=== PATIENT | male | born 1955 | race Caucasian/White ===

== ENCOUNTER 2020-08-10 09:31 | Emergency (ER) | payer MEDICARE, OTHER, SELFPAY ==
[2020-08-10 09:42] VITALS: BP 140/72; PULSE 71; RESP 20; TEMP 36.1; O2SAT 100
[2020-08-10] MEDS: TETANUS,DIPHTHERIA,AC PERTUSSIS ADULT (0.5 ML) BOOSTRIX IM (10:23)
--- NOTE | 2020-08-10 10:29 | ED.WOUNDLAC ---
HPI - Wound/Laceration General Chief Complaint: Wound/Laceration Stated Complaint: left thumb lac Time Seen by Provider: 08/10/20 10:10 Source: patient and RN notes reviewed Mode of arrival: ambulatory Limitations: no limitations History of Present Illness HPI narrative: Patient presents today with a laceration to his left thumb that was sustained at 915 this morning on a stainless steel grill at his home. He is not up-to-date on his tetanus vaccine. Currently rates his pain /10. Denies numbness or tingling in the affected finger. He has tried no [id number] treatment prior to arrival. Related Data Home Medications Medication Instructions Recorded Confirmed atorvastatin 20 mg PO DAILY 08/10/20 08/10/20 celecoxib 200 mg PO BID 08/10/20 08/10/20 citalopram 30 mg PO DAILY 08/10/20 08/10/20 Allergies Allergy/AdvReac Type Severity Reaction Status Date / Time No Known Allergies Allergy Verified 08/10/20 09:49 Review of Systems Review of Systems: Narrative: CONSTITUTIONAL: Denies body aches, fever, chills, or sweats. EYES: Denies visual changes, redness, or discharge. ENT: Denies rhinorrhea, congestion, sore throat, or otalgia. CARDIOVASCULAR: Denies chest pain, palpitations, or edema. RESPIRATORY: Denies cough or dyspnea. GASTROINTESTINAL: Denies abdominal pain, nausea, vomiting, or diarrhea. GENITOURINARY: Denies dysuria or hematuria. SKIN: Denies rash, itching,. +Laceration to left thumb MUSCULOSKELETAL: Denies back pain, joint pain, or myalgia. NEUROLOGIC: Denies headache, numbness, tingling, or weakness. PSYCH: Denies depression or anxiety. [facility] Past Medical History Medical History (Updated 08/10/20 @ 12:47 by Vanesa Liang, [facility], ) Hyperlipidemia Comments At time of signature, I have reviewed and agree with nursing past medical, surgical, social and family history unless otherwise noted. Please see nursing chart for further information. There is no relevant family history pertinent to the presenting complaint Exam Narrative: Exam Narrative: GENERAL: Well-appearing, well-nourished, and in no acute distress. HEAD: Normocephalic, atraumatic. EYES: EOMI. No redness or drainage. Conjunctivae normal. ENT: Mucous membranes pink and moist. NECK: Normal AROM. CHEST: No respiratory distress. EXTREMITIES: 2 cm partial-thickness linear laceration to the dorsum of the left first finger at the inner phalangeal joint. Full AROM against resistance. Distal sensation intact. Capillary refill normal. SKIN: Warm, dry, no rash. Capillary refill normal. Normal skin turgor. NEURO: No focal deficits. Alert and oriented x3. Gait steady. PSYCH: Normal affect. No signs of depression or anxiety. Course Vital Signs Vital signs: Vital Signs Temperature 97.0 F L 08/10/20 09:42 Pulse Rate 71 08/10/20 09:42 Respiratory Rate 20 08/10/20 09:42 Blood Pressure 140/72 08/10/20 09:42 Pulse Oximetry 100 08/10/20 09:42 Temperature 97.0 F L 08/10/20 09:42 Pulse Rate 71 08/10/20 09:42 Respiratory Rate 20 08/10/20 09:42 Blood Pressure 140/72 08/10/20 09:42 Pulse Oximetry 100 08/10/20 09:42 Reviewed. Pt has been instructed to follow up with his PCP regarding his elevated blood pressure today. Procedures Laceration Laceration 1: Date: 08/10/20 Time: 10:20 Site: upper extremity Side (If applicable): left Size (cm): 2 Description: linear Depth: simple, single layer Local Anesthetic: lidocaine 1% Amount of anesthesia used (mL): 1 Pre-repair: wound explored and irrigated ====== Skin Level ====== Skin layer closed with: nylon Size (cm): 5-0 Number of sutures: 3 Technique: simple, interrupted ====== Subcutaneous Layer ====== ====== Muscle Layer ====== ====== Tendon Layer ====== Dressing: Dressed and splinted by tech MDM - Wound/Laceration Differential Leena
== END 2020-08-10 10:43 | disposition home or self-care (01) ==
PROVIDERS: Emergency Provider Nurse Practitioner; PCP Family Medicine
DX: S61.012A Laceration without foreign body of left thumb without damage to nail, initial encounter (principal); X58.XXXA Exposure to other specified factors, initial encounter; Z23 Encounter for immunization; E78.5 Hyperlipidemia, unspecified
CPT/HCPCS: 12001; 90471; 90715; 99202; G0463

== ENCOUNTER 2022-11-03 13:31 | Emergency (ER) | payer MEDICARE, OTHER, SELFPAY ==
[2022-11-03 13:46] VITALS: BP 122/57; PULSE 88; RESP 20; TEMP 36.8; O2SAT 96
--- NOTE | 2022-11-03 14:15 | ED.EAR ---
HPI - Ear Problem General Chief complaint: Ear Stated complaint: Ear Pain/Sinus Pain Time Seen by Provider: 11/03/22 14:15 Source: patient, RN notes reviewed and old records reviewed Mode of arrival: ambulatory Limitations: no limitations History of Present Illness HPI Narrative: 67 ear old male who presents to [facility] care with complaints of 3 day history of right ear pain feeling like his ear was clogged,with decreased hearing. He used an ear wax removal kit but no improvement in his symptoms. He reports that last night he started with nasal drainage and congestion and also mild cough. Patient reports that he has been taking Claritin and has also used nasal spray for his congestion. MD Complaint: ear pain and decreased hearing Location: right ear Duration: constant Discharge from ear: Reports no Treatment prior to arrival: attempt at ear wax removal and other (Claritin and nasal spray) Related Data Home Medications Medication Instructions Recorded Confirmed atorvastatin 40 mg tablet 20 mg PO DAILY 08/10/20 11/03/22 celecoxib 200 mg capsule 200 mg PO BID 08/10/20 11/03/22 citalopram 20 mg tablet 30 mg PO DAILY 08/10/20 11/03/22 adalimumab 40 mg/0.8 mL 40 mg subcut ONCE 11/03/22 11/03/22 subcutaneous syringe kit (Humira) Allergies Allergy/AdvReac Type Severity Reaction Status Date / Time No Known Allergies Allergy Verified 11/03/22 13:39 Review of Systems Review of Systems: CONSTITUTIONAL: Denies malaise, chills, sweats, or fever. EYES: Denies visual changes, redness, or discharge. ENT: Reports rhinorrhea, congestion, sinus pain, right otalgia no sore throat. CARDIOVASCULAR: Denies chest pain, palpitations, or edema. RESPIRATORY: Reports mild cough.? Denies dyspnea. GASTROINTESTINAL: Denies abdominal pain, nausea, vomiting, diarrhea SKIN: Denies rash or itching. MUSCULOSKELETAL: Denies myalgia. NEUROLOGIC: Denies headache. All systems reviewed & are unremarkable except as noted in HPI and below PMFSH Past Medical History Medical History (Updated 11/04/22 @ 20:11 by Ester Mathew NP) Hyperlipidemia Plaque psoriasis Rheumatoid arthritis Surgical History Surgical History (Updated 11/04/22 @ 20:13 by Ester Mathew NP) History of elbow surgery left History of right knee joint replacement History of total left knee replacement Hx of repair of left rotator cuff Status post left rotator cuff repair Social History Social History (Updated 11/04/22 @ 20:14 by Ester Mathew NP) Smoking status: Former smoker Tobacco type: cigarettes Alcohol intake: unknown Substance use type: does not use Living arrangements: with family Gender identity (if verbalized by the patient): Male Comments At time of signature, agree with nursing past medical, surgical, social and family history. There is no relevant family history pertinent to the presenting complaint Exam Narrative: GENERAL: Well-appearing, well-nourished, and in no acute distress. HEAD: Normocephalic EYES: PERRLA, conjunctivae clear ENT: Nares clear, turbinates edematous and erythematous, clear discharge. Mucous membranes moist.Right TM after removal of wax red and bulging, Left TM pearly norris with dull light reflex; no tragal tenderness. Oropharynx erythematous without lesions. Tonsils not enlarged and without exudate, no drooling, no hoarseness, no trismus, uvula midline.post nasal drainage noted in back of throat. NECK: Supple. No lymphadenopathy CHEST: Clear to auscultation, breath sounds equal. No wheezing, rhonchi, rales, or stridor. No respiratory distress, speaks in full sentences.dry cough, SAO2 96% on room air. HEART: Regular rate and rhythm. No murmur heard. SKIN: Warm, dry, no rash. NEURO: Alert and oriented x3. PSYCH: Normal mood and affect Course Course Emergency Course: Patient is aware of diagnosis, understands and agrees to treatment plan.? Anticipatory guidance given.? Patient agr
== END 2022-11-03 15:08 | disposition home or self-care (01) ==
PROVIDERS: Emergency Provider Registered Nurse; PCP Family Medicine
DX: H65.01 Acute serous otitis media, right ear (principal); H61.21 Impacted cerumen, right ear; Z87.891 Personal history of nicotine dependence; E78.5 Hyperlipidemia, unspecified; M06.9 Rheumatoid arthritis, unspecified; Z96.653 Presence of artificial knee joint, bilateral
CPT/HCPCS: 69209; 99213; G0463

== ENCOUNTER 2024-04-24 18:31 | Emergency (ER) | payer MEDICARE, OTHER, SELFPAY ==
[2024-04-24 18:34] VITALS: BP 136/78; PULSE 71; RESP 16; TEMP 37.1; O2SAT 98
--- NOTE | 2024-04-24 19:19 | ED.EAR ---
HPI - Ear Problem General Chief complaint: Ear Stated complaint: Right Ear Pain Time Seen by Provider: 04/24/24 19:00 Source: patient, RN notes reviewed and old records reviewed Mode of arrival: ambulatory Limitations: no limitations History of Present Illness HPI Narrative: 69-year-old male to [facility] for complaint decreased hearing in right ear over past 3 weeks. Patient endorses history of impacted cerumen that required removal by provider and states that it has been quite sometime since he has had removal completed. Patient states that he uses the arm of his classes to scratch the inside of his ears and believes this may be a contributing factor. Patient has not attempted to remove wax at home. patient denies ear pain, recent illness, allergies. Patient able to tolerate fluids by mouth. Respirations even and nonlabored. Patient in no acute distress. Related Data Home Medications Medication Instructions Recorded Confirmed atorvastatin 40 mg tablet 20 mg PO DAILY 08/10/20 04/24/24 celecoxib 200 mg capsule 200 mg PO BID 08/10/20 04/24/24 citalopram 20 mg tablet 30 mg PO DAILY 08/10/20 04/24/24 adalimumab 40 mg/0.8 mL 40 mg subcut ONCE 11/03/22 04/24/24 subcutaneous syringe kit (Humira) valsartan 80 mg tablet 80 mg PO DAILY 04/24/24 04/24/24 Allergies Allergy/AdvReac Type Severity Reaction Status Date / Time No Known Allergies Allergy Verified 11/03/22 13:39 Review of Systems Review of Systems: All systems reviewed & are unremarkable except as noted in HPI and below Constitutional: Constitutional: Reports no additional constitutional complaints Eyes: Eyes: Reports no additional eye complaints ENT: Reports as per HPI and Reports hearing loss ( right ear) Cardiovascular: Cardiovascular: Reports no additional cardiovascular complaints, Denies chest pain and Denies dyspnea Respiratory: Respiratory: Reports no additional respiratory complaints, Denies cough and Denies dyspnea Musculoskeletal: Musculoskeletal: Reports no additional musculoskeletal complaints Neurologic: Reports system reviewed and no additional complaints, except as documented Psychiatric: Psychiatric: Reports no additional psychiatric complaints [facility] Past Medical History Medical History Hyperlipidemia Plaque psoriasis Rheumatoid arthritis Surgical History Surgical History History of elbow surgery left History of right knee joint replacement History of total left knee replacement Hx of repair of left rotator cuff Status post left rotator cuff repair Social History Social History Smoking status: Former smoker Tobacco type: cigarettes Alcohol intake: unknown Substance use type: does not use Living arrangements: with family Gender identity (if verbalized by the patient): Male Comments At the time of my signature, I reviewed and agree with the nursing past medical, surgical, social, and family history. There is no relevant family history pertinent to the patient complaint. Exam Const: General: cooperative, healthy appearing, comfortable, no acute distress, alert and well nourished Nutritional Appearance: well nourished Orientation/consciousness: patient oriented x3 Limitations: no limitations HENMT: Head: normal to inspection Ears: external ears normal and Abnormal EAC present cerumen impaction on the right Face/Nose/Sinus: Normal external nose present, Normal nares present, normal facial exam, No erythema and No edema Face and sinus: normal facial exam, no erythema and no edema Mouth: Yes Normal oral and palatal mucosa present Eyes: General: appearance normal, both eyes and all related structures Neck: Neck: normal visual inspection, full ROM and no meningeal signs Lymphatic: no lymphadenopathy noted and no lymphedema noted Raquel
== END 2024-04-24 19:34 | disposition home or self-care (01) ==
PROVIDERS: Emergency Provider Nurse Practitioner Family; PCP Family Medicine
DX: H61.21 Impacted cerumen, right ear (principal); E78.5 Hyperlipidemia, unspecified; L40.0 Psoriasis vulgaris; M06.9 Rheumatoid arthritis, unspecified; Z96.653 Presence of artificial knee joint, bilateral; Z87.891 Personal history of nicotine dependence
CPT/HCPCS: 69210; 99213; A9270; G0463

== ENCOUNTER 2024-08-23 11:19 | Emergency (ER) | payer MEDICARE, OTHER, SELFPAY ==
[2024-08-23 11:33] VITALS: BP 141/75; PULSE 63; RESP 14; TEMP 36.9; O2SAT 98
--- NOTE | 2024-08-23 12:44 | ED_ITS ---
HPI - Ear Problem General Chief complaint: Ear Stated complaint: Right Ear Problem Source: patient Mode of arrival: ambulatory Limitations: no limitations History of Present Illness HPI Narrative: 69-year-old male presented for complaint of right ear is clogged and needs to be cleaned out. Also reports sinus congestion and drainage for over 2 weeks. Took a few [id number] medicines without relief. Denies shortness of breath, wheezing nausea vomiting diarrhea or lethargy. MD Complaint: ear pain Related Data Home Medications ?Medication ?Instructions ?Recorded ?Confirmed ?Last Taken ?Type atorvastatin 40 mg tablet 20 mg PO DAILY 08/10/20 08/23/24 Unknown History celecoxib 200 mg capsule 200 mg PO BID 08/10/20 08/23/24 Unknown History citalopram 20 mg tablet 30 mg PO DAILY 08/10/20 08/23/24 Unknown History adalimumab 40 mg/0.8 mL 40 mg subcut ONCE 11/03/22 08/23/24 Unknown History subcutaneous syringe kit (Humira) valsartan 80 mg tablet 80 mg PO DAILY 04/24/24 08/23/24 Unknown History atorvastatin 20 mg tablet mg 08/23/24 Unknown History halobetasol propionate 0.05 % topical 08/23/24 Unknown History topical ointment vitamin E 08/23/24 Unknown History Allergies Allergy/AdvReac Type Severity Reaction Status Date / Time No Known Allergies Allergy Verified 08/23/24 11:24 Review of Systems Review of Systems: CONSTITUTIONAL: Denies malaise, chills, or fever. EYES: Denies visual changes, redness, or discharge. ENT: Denies sore throat. Reports ear pain, rhinorrhea, congestion, sinus pain CARDIOVASCULAR: Denies chest pain, palpitations, or edema. RESPIRATORY: Denies cough or dyspnea. GASTROINTESTINAL: Denies abdominal pain, nausea, vomiting, diarrhea MUSCULOSKELETAL: Denies myalgia. NEUROLOGIC: Denies headache. All systems reviewed & are unremarkable except as noted in HPI and below PMFSH Past Medical History Medical History Rheumatoid arthritis Plaque psoriasis Hyperlipidemia Surgical History Surgical History History of elbow surgery left Status post left rotator cuff repair History of total left knee replacement History of right knee joint replacement Hx of repair of left rotator cuff Social History Social History Smoking status: Former smoker Tobacco type: cigarettes Alcohol intake: unknown Substance use type: does not use Living arrangements: with family Gender identity (if verbalized by the patient): Male Comments At time of signature, agree with nursing past medical, surgical, social and family history. There is no relevant family history pertinent to the presenting complaint Exam Narrative: GENERAL: Well-appearing EYES: PERRLA, conjunctivae clear ENT: Nares clear. Mucous membranes moist. Left TM pearly norris with dull light reflex; Right TM unable to visualize due to excess cerumen no tragal tenderness. Oropharynx not erythematous without lesions. NECK: Supple. No lymphadenopathy CHEST: Clear to auscultation, breath sounds equal. No wheezing, rhonchi, rales, or stridor. No respiratory distress, speaks in full sentences. HEART: Regular rate and rhythm. No murmur heard. SKIN: Warm, dry, no rash. NEURO: Alert and oriented x3. PSYCH: Normal mood and affect Course Course Emergency Course: Patient is aware of diagnosis, understands and agrees to treatment plan. Anticipatory guidance given. Patient agrees to follow-up as directed and is aware of reasons to seek care at the emergency department. Portions of this record may have been created with voice recognition software Level of Care: Express Care Visit Vital Signs Vital signs: Vital Signs Temperature 98.4 F 08/23/24 11:33 Pulse Rate 63 08/23/24 11:33 Respiratory Rate 14 08/23/24 11:33 Blood Pressure 141/75 H 08/23/24 11:33 Pulse Oximetry 98 08/23/24 11:33 Oxygen Delivery Room Air 08/23/24 11:33 Temperature 98.4 F 08/23/24 11:33 Pulse Rate 63 08/23/24 11:33 Respiratory Rate 14 08/23/24 11:33 Blood Pressure 141/75 H 08/23/24 11:33 Pulse Oximetry 98 08/23/24 11:33 Oxygen Delivery Room Air 08/23/24 11:33 Reviewed Procedures Ear Wax Removal Right Ear: Ear Wax Removal Date: 08/23/24 Cerumenolytic Used: other ( equal parts warm water and hydrogen peroxide) Results: Re-examined: cerumen removed completely TM Examination: TM(s) intact, normal appearance Ear Canal Exam: atraumatic Patient Tolerated Procedure: well and no complications Technique: ear canal irrigated and ear canal curetted Additional Comments: Cerumen removed easily, reported immediate improvement in hearing. Medical Decision Making MDM Narrative Medical decision making narrative: Discussed physical exam findings, right cerumen impaction and sinus infection. Tolerated cerumen removal. Advised supportive measures and signs/symptoms to go to the ER. Patient is appropriate for outpatient treatment and follow-up. Differential Diagnosis Differential Diagnosis: Coronavirus, strep pharyngitis, allergic rhinitis, upper respiratory tract infection, sinusitis, rhinosinusitis, nasopharyngitis, viral pharyngitis, otitis media, otitis externa, eustachian tube dysfunction, foreign body, cerumen impaction. Vital Signs Vital Signs: Vital Signs Temperature 98.4 F 08/23/24 11:33 Pulse Rate 63 08/23/24 11:33 Respiratory Rate 14 08/23/24 11:33 Blood Pressure 141/75 H 08/23/24 11:33 Pulse Oximetry 98 08/23/24 11:33 Oxygen Delivery Room Air 08/23/24 11:33 Temperature 98.4 F 08/23/24 11:33 Pulse Rate 63 08/23/24 11:33 Respiratory Rate 14 08/23/24 11:33 Blood Pressure 141/75 H 08/23/24 11:33 Pulse Oximetry 98 08/23/24 11:33 Oxygen Delivery Room Air 08/23/24 11:33 Discharge Plan Discharge Clinical Impression: Sinusitis Qualifiers: Sinusitis location: unspecified location Chronicity: acute Recurrence: non- recurrent Qualified Code(s): J01.90 - Acute sinusitis, unspecified Impacted cerumen Qualifiers: Laterality: right Qualified Code(s): H61.21 - Impacted cerumen, right ear Patient Disposition: Home, Self-Care Condition: Stable Instructions: Antibiotic Form, Rhinosinusitis (ED) Additional Instructions: Take antibiotic as directed for sinus infection Recommend Flonase spray and Zyrtec (or Claritin/[place]) over the counter Cough syrup may cause drowsiness; avoid driving or take it at night time. Tylenol 1000mg every 8 hours as needed for pain Symptomatic treatment includes: rest, fluids, and increase humidity of the air at home. Please use a earwax softening agent such as [id number] Debrox or a mixture of 1 part hydrogen peroxide in 1 part warm water several times weekly to keep your earwax soft and prevent further impaction. Please follow-up with your primary care doctor if you develop new symptoms. If you have urgent concerns please go to the ER. Patient Language: [place] Prescriptions: New amoxicillin-pot clavulanate 875-125 mg tablet 1 tablet PO Q12H 7 Days Qty: 14 0RF No Action Humira 40 mg/0.8 mL Syringe Kit 40 mg SUBCUT ONCE valsartan 80 mg tablet 80 mg PO DAILY ofloxacin 0.3 % drops 10 drp EACH EAR DAILY 7 Days Qty: 10 0RF celecoxib 200 mg Capsule 200 mg PO BID atorvastatin 40 mg Tablet 20 mg PO DAILY citalopram 20 mg Tablet 30 mg PO DAILY atorvastatin 20 mg tablet halobetasol propionate 0.05 % ointment TOPICAL vitamin E Follow-up/Referrals: Harms,Tom Brunner M.D. [Primary Care Provider] - Time of Disposition: 12:58
== END 2024-08-23 13:01 | disposition home or self-care (01) ==
PROVIDERS: Emergency Provider Nurse Practitioner Family; PCP Family Medicine
DX: J01.90 Acute sinusitis, unspecified (principal); H61.21 Impacted cerumen, right ear; Z87.891 Personal history of nicotine dependence; E78.5 Hyperlipidemia, unspecified; M06.9 Rheumatoid arthritis, unspecified; L40.0 Psoriasis vulgaris; Z96.653 Presence of artificial knee joint, bilateral
CPT/HCPCS: 69210; 99213; G0463